=== PATIENT | female | born 1950 | race Caucasian/White ===

== ENCOUNTER 2022-09-27 18:41 | Emergency (ER) | payer MEDICARE, OTHER ==
[~2022-09-27] VITALS: Ht 152.4 cm; Wt 83.9 kg
[2022-09-27] MEDS ORDERED: IBUPROFEN 200 MG TAB PO ONE (19:15)
[2022-09-27] MEDS ORDERED: ACETAMINOPHEN 325 MG TAB PO ONE (19:15)
[2022-09-27] MEDS ORDERED: IBUPROFEN200 MG PO (19:24)
[2022-09-27] MEDS ORDERED: HYDROCODON-ACE1 EA11 PO (19:24)
[2022-09-27] MEDS ORDERED: ONDANSETRON ODT4 MG PO (19:24)
[2022-09-27] MEDS ORDERED: ACETAMINOPHEN 325 MG TAB ONE (19:31)
[2022-09-27] MEDS ORDERED: IBUPROFEN 200 MG TAB ONE (19:32)
[2022-09-27 19:46] VITALS: BP 132/74
== END 2022-09-27 19:48 | disposition home or self-care (01) ==
LOC: FSED 19:03
DX: S43.492A Other sprain of left shoulder joint, initial encounter (principal); W18.39XA Other fall on same level, initial encounter; Y93.01 Activity, walking, marching and hiking; Y92.89 Other specified places as the place of occurrence of the external cause; I10 Essential (primary) hypertension
CPT/HCPCS: 99284